=== PATIENT | female | born 1955 | race Caucasian/White ===

== ENCOUNTER 2017-09-05 15:03 | Emergency (ER) | payer MEDICAID, OTHER ==
[~2017-09-05] VITALS: Ht 157.5 cm; Wt 68.6 kg
[2017-09-05 15:14] VITALS: BP 112/72
[2017-09-05] MEDS ORDERED: DEXAMETHASONE 4 MG TABLET PO STA (15:50)
[2017-09-05] MEDS ORDERED: HYDROcodone/APAP 5/325 TABLET PO STA (15:53)
[2017-09-05] MEDS ORDERED: ONDANSETRON ODT 4 MG PO ONE (16:00)
[2017-09-05] MEDS ORDERED: SULFAMETH./TRIMETHOPRIM DS 800MG/160MG TABLET PO ONE (16:00)
[2017-09-05] MEDS ORDERED: CEPHALEXIN 500 MG CAPSULE PO ONE (16:00)
[2017-09-05] MEDS ORDERED: DEXAMETHASONE 4 MG TABLET ONE (16:02)
[2017-09-05] MEDS ORDERED: CEPHALEXIN 500 MG CAPSULE ONE (16:03)
[2017-09-05] MEDS ORDERED: HYDROcodone/APAP 5/325 TABLET ONE (16:03)
[2017-09-05] MEDS ORDERED: SULFAMETH./TRIMETHOPRIM DS 800MG/160MG TABLET ONE (16:04)
[2017-09-05] MEDS ORDERED: ONDANSETRON ODT 4 MG ONE (16:04)
== END 2017-09-05 16:41 | disposition home or self-care (01) ==
LOC: ED 16:35
DX: J34.0 Abscess, furuncle and carbuncle of nose (principal); J02.9 Acute pharyngitis, unspecified
CPT/HCPCS: 87081; 87880; 99284; Q0162; 87147

== ENCOUNTER 2018-07-09 10:34 | Emergency (ER) | payer SELFPAY ==
[~2018-07-09] VITALS: Ht 157.5 cm; Wt 66.0 kg
--- NOTE | 2018-07-09 10:41 | NUR ---
Pt ambulates to room from triage with steady gait and balance. NADN, no obvious defecits observed.
--- NOTE | 2018-07-09 10:47 | NUR ---
Pt presents to ED with c/o right sided facial swelling beginning 07/08. Pt states, "I went to two dentist, they said it wasn't my tooth." NADN. Pt connected to NIBP and continous pulse ox. All safety measures in place. Call light within reach. Pt denies n/v/d, sob, cp, trauma.
[2018-07-09 10:54] VITALS: BP 133/76
[2018-07-09] MEDS ORDERED: CLINDAMYCIN 300 MG CAPSULE PO ONE (11:00)
[2018-07-09] MEDS ORDERED: CLINDAMYCIN 300 MG CAPSULE ONE (11:09)
[2018-07-09 11:17] LABS: BASOPHILS # (AUTO) 0.04 x10^3/uL (0-0.1); BASOPHILS % (AUTO) 0 % (0-1); EOSINOPHILS # (AUTO) 0.13 x10^3/uL (0-0.4); EOSINOPHILS % (AUTO) 1 % (1-7); LYMPHOCYTES # (AUTO) 1.92 x10^3/uL (1-3.4); LYMPHOCYTES % (AUTO) 18 % (22-44); MD NO; MEAN CORPUSCULAR VOLUME 88.2 fL (80-100); MEAN PLATELET VOLUME 8.2 fL (7.4-10.4); MONOCYTES # (AUTO) 0.65 x10^3/uL (0.2-0.8); MONOCYTES % (AUTO) 6 % (2-9); NEUTROPHILS # (AUTO) 7.68 x10^3/uL (1.8-6.8); NEUTROPHILS % (AUTO) 74 % (42-75); PLATELET COUNT 360 x10^3/uL (130-400); RED BLOOD COUNT 4.71 x10^6/uL (3.82-5.3); RED CELL DISTRIBUTION WIDTH 12.2 % (9.6-15.2)
[2018-07-09 11:26] LABS: ALBUMIN 3.5 g/dL (3.4-5.0); ANION GAP 5 mmol/L (5-15); CALCIUM 8.8 mg/dL (8.5-10.1); CHLORIDE 107 mmol/L (98-107); CREATININE 0.92 mg/dL (0.55-1.02)
[2018-07-09] MEDS ORDERED: SODIUM CHLORIDE FLUSH 10ML SYR IVF ONE (12:00)
[2018-07-09] MEDS ORDERED: AMPICILLIN/SULBACTAM 3 GM in SODIUM CHLORIDE 0.9% 100 ML IV ONE (12:00)
== END 2018-07-09 12:14 | disposition home or self-care (01) ==
LOC: ED 12:08
DX: L03.211 Cellulitis of face (principal); J01.00 Acute maxillary sinusitis, unspecified
CPT/HCPCS: 36415; 70450; 80048; 82040; 85025; 99284

== ENCOUNTER 2019-10-18 14:42 | Emergency (ER) | payer MEDICARE ==
[~2019-10-18] VITALS: Ht 157.5 cm; Wt 64.9 kg
[2019-10-18 14:44] VITALS: BP 132/79
--- NOTE | 2019-10-18 15:24 | NUR ---
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
--- NOTE | 2019-10-18 15:47 | NUR ---
MED REQUESTED FROM PHARMACY
[2019-10-18] MEDS ORDERED: TRANEXAMIC ACID 100 MG/ML, 10ML TP ONE (16:00)
[2019-10-18] MEDS ORDERED: TRANEXAMIC ACID 100 MG/ML, 10ML ONE (16:06)
--- NOTE | 2019-10-18 16:17 | NUR ---
OBDULIO IS AT THE BEDSIDE FOR INJECTION
== END 2019-10-18 17:28 | disposition home or self-care (01) ==
LOC: ED 15:48
DX: K06.8 Other specified disorders of gingiva and edentulous alveolar ridge (principal)
CPT/HCPCS: 99282

== ENCOUNTER 2019-10-19 07:09 | Emergency (ER) | payer MEDICARE ==
[~2019-10-19] VITALS: Ht 157.5 cm; Wt 67.0 kg
--- NOTE | 2019-10-19 07:13 | NUR ---
NA X 1 @ [id number]
[2019-10-19 07:17] VITALS: BP 90/70
--- NOTE | 2019-10-19 08:41 | NUR ---
PT TO ROOM FROM LOBBY, GAIT STEADY
[2019-10-19] MEDS ORDERED: TRANEXAMIC ACID 100 MG/ML, 10ML TP ONE (09:00)
[2019-10-19] MEDS ORDERED: PLEASE ENTER HEIGHT AND WEIGHT MC SCH (09:00)
[2019-10-19] MEDS ORDERED: TRANEXAMIC ACID 100 MG/ML, 10ML ONE (09:03)
--- NOTE | 2019-10-19 09:04 | NUR ---
TRANEXAMIC ACID GIVEN TO ZOYA ARROYO FOR ADMINISTRATION
--- NOTE | 2019-10-19 09:44 | NUR ---
PT SITTING UP ON GURNEY, NO ACUTE DISTRESS NOTED. NO IV TO DC. REVIEWED DC INSTRUCTIONS WITH PT. UNDERSTANDING VERBALIZED. PT LEFT AMB, GAIT STEADY
== END 2019-10-19 09:48 | disposition home or self-care (01) ==
LOC: ED 08:48
DX: K08.89 Other specified disorders of teeth and supporting structures (principal)
CPT/HCPCS: 99282